=== PATIENT | male | born 1995 | race Caucasian/White ===

== ENCOUNTER 2017-02-16 17:53 | Emergency (ER) | payer BC ==
[~2017-02-16] VITALS: Ht 190.5 cm; Wt 83.2 kg
[2017-02-16] MEDS ORDERED: SODIUM CHLORIDE 0.9% 1000ML 1,000 ML IV STA (17:56)
[2017-02-16 18:00] VITALS: TEMP 36.4; Ht 190.5 cm; Wt 83.2 kg
[2017-02-16] MEDS ORDERED: DIPHTHERIA/TETANUS/PERTUSSIS 0.5 ML SYR/VIAL IM. ONE (18:00)
--- NOTE | 2017-02-16 18:01 | EMERGENCY ROOM VISIT NOTE ---
History Report prepared by Viviana: Cleve Xavier Under the Supervision of: Dr. Tod Gardiner M.D. First contact with patient: 17:55 Stated Complaint: ETOH History of Present Illness The patient is a 24 year old male who presents to the Emergency Room via EMS with complaints of alcohol intoxication that occurred DITCH DIGGER. This HPI is limited secondary to intoxication. Per EMS, the patient was seen in someone's back yard. At this time, the patient fell down forward onto his face in the man's garden. He is oriented to person only. Source of History: EMS History Limited By: intoxication Onset: DITCH DIGGER Position: other (global) Symptom Intensity: moderate Quality: other (ETOH intoxication) Timing: constant Review of Systems See HPI for pertinent positives & negatives. A total of 10 systems reviewed and were otherwise negative. Past Medical & Surgical Unable to obtain secondary to alcohol intoxication Family History Unable to obtain secondary to alcohol intoxication. Social History Smoking Status: Unknown if Ever Smoked Smokeless Tobacco Use: Unknown Alcohol Use: occasionally Marital Status: single Occupation Status: student Current/Historical Medications Scheduled Amoxicillin & Pot Clavulanate (Augmentin 875-125 mg), 875 MG PO BID Physical Exam Vital Signs Date Time Temp Pulse Resp B/P Pulse Ox O2 Delivery O2 Flow Rate FiO2 02/17/17 00:06 100 18 99/46 98 Room Air 02/16/17 22:17 103 02/16/17 22:05 133 15 98 02/16/17 22:00 98/49 02/16/17 21:40 107 16 94 02/16/17 21:35 105 16 93 02/16/17 21:30 105/50 02/16/17 21:05 105 16 93 02/16/17 21:00 116/67 02/16/17 20:38 105 17 93 02/16/17 20:08 112 17 93 02/16/17 19:38 121 20 02/16/17 19:33 133 18 148/136 02/16/17 19:03 128 20 02/16/17 18:58 128 15 02/16/17 18:55 117/62 02/16/17 18:28 142 18 98 02/16/17 18:23 142 21 98 02/16/17 18:10 133 02/16/17 18:00 36.4 133 15 128/62 99 Room Air 02/16/17 17:59 128/62 Physical Exam GENERAL: Patient is heavily intoxicated. Smells of alcohol. Well appearing and in no acute distress. Covered in blood and mud. HEAD: NC, multiple abrasions to the face and chin EYES: Injected conjunctiva. Normal EOM. Pupils equal/reactive. ENT: Mucous membranes moist, no nasal congestion. Deep laceration over the bridge of the nose. NECK: No step-offs, no adenopathy, no meningismus, trachea is midline. LUNGS: No dyspnea. Clear to auscultation and equal bilaterally. No wheeze, no rhonchi. HEART: Regular rate and rhythm. No murmurs, rubs, gallops appreciated. ABDOMEN: Soft, nontender, bowel sounds positive, no masses appreciated, no peritonitis. BACK: No midline tenderness, no CVA tenderness EXTREMITIES: Normal motion all extremities, no cyanosis, no edema. NEUROLOGIC: Intoxicated. Oriented to person only. No acute motor or sensory deficits, no focal weakness, cranial nerves grossly intact. GCS of 14. SKIN: No rash, no jaundice, no diaphoresis. Medical Decision & Procedures ER Provider Diagnostic Interpretation: Radiology results are stated below per my review and radiologist interpretation: CT FACIAL BONES-MXILLOFAC WITHOUT CT DOSE: CLINICAL HISTORY: Head and facial trauma. Alcohol overdose. COMPARISON STUDY: No previous studies for comparison. TECHNIQUE: Helical images were acquired in the transverse plane. The study was reviewed and analyzed on the independent 3-D workstation. The pterygoid plates appear intact. The zygomatic arches appear intact. The globes appear intact. There is no evidence of orbital emphysema. The orbital ramos and floor appear intact. The mandibular condyles appear intact. There is bilateral maxillary sinus mucosal thickening. There is ethmoid sinus mucosal thickening. There is minimal sphenoid sinus mucosal thickening. There is a nondisplaced nasal bone fracture. IMPRESSION: Nondisplaced nasal bone fracture. No additional facial fractures identified. Electronically signed by: Aryan Nichols M.D. 02/16/2017 7:00 PM Dictated Date/Time: 02/16/2017 6:[address] HEAD WITHOUT CONTRAST (CT) CLINICAL HISTORY: Head trauma. Alcohol intoxication. COMPARISON STUDY: No previous studies for comparison. TECHNIQUE: Axial CT of the brain is performed from the vertex to the skull base. IV contrast was not administered for this examination. CT DOSE: 1288.55 mGy.cm FINDINGS: No intra or extra-axial mass lesions are visualized. There is no CT evidence of acute cortical infarction. There is no evidence of midline shift. There is no acute hemorrhage. No calvarial fractures are visualized. Tiny right basal ganglia hypodensities likely represent dilated perivascular spaces. There is no evidence of pathologic ventricular dilatation. There is bilateral maxilla sinus mucosal thickening. There is trace fluid in the right maxilla sinus. There is a right maxilla sinus retention cyst. There is a nasal bone fracture. IMPRESSION: 1. Nasal bone fracture 2. No acute intracranial findings. No evidence of acute intracranial injury. Electronically signed by: Aryan Nichols M.D. 02/16/2017 6:57 PM Dictated Date/Time: 02/16/2017 6:56 PM CHEST ONE VIEW PORTABLE CLINICAL HISTORY: Alcohol overdose COMPARISON STUDY: No previous studies for comparison. FINDINGS: The cardiac and mediastinal contours are normal. There is no evidence of focal pulmonary consolidation. There is no evidence of failure. No pleural effusions are visualized.[ IMPRESSION: No active disease in the chest. Electronically signed by: Aryan Nichols M.D. 02/16/2017 7:32 PM Dictated Date/Time: 02/16/2017 7:[address] OF THE CERVICAL SPINE CLINICAL HISTORY: Neck pain status post trauma. Alcohol intoxication. COMPARISON STUDY: No previous studies for comparison. CT DOSE: TECHNIQUE: CT scan of the cervical spine was performed from the skull base to the thoracic inlet. Images are reviewed in the axial, sagittal, and coronal planes. IV contrast was not administered for this examination. FINDINGS: The visualized portions of the lung apices reveal no evidence of pneumothorax. The prevertebral soft tissues are normal. No fractures or subluxations are visualized. IMPRESSION: No evidence of acute fracture or traumatic subluxation. Electronically signed by: Aryan Nichols M.D. 02/16/2017 7:03 PM Dictated Date/Time: 02/16/2017 7:02 PM Laboratory Results 02/16/17 18:10 02/16/17 18:10 Test 02/16/17 18:10 02/16/17 18:19 Red Blood Count 5.28 M/uL (4.7-6.1) Mean Corpuscular Volume 81.6 fL (80-100) Mean Corpuscular Hemoglobin 29.7 pg (25-34) Mean Corpuscular Hemoglobin Concent 36.4 g/dl (32-36) RDW Standard Deviation 36.4 fL (36.4-46.3) RDW Coefficient of Variation 12.2 % (11.5-14.5) Mean Platelet Volume 9.9 fL (7.4-10.4) Anion Gap 13.0 mmol/L (3-11) Est Creatinine Clear Calc Drug Dose 122.9 ml/min Estimated GFR () 109.1 Estimated GFR (Non- 94.1 BUN/Creatinine Ratio 11.6 (10-20) Calcium Level 8.4 mg/dl (8.5-10.1) Ethyl Alcohol mg/dL 326.0 mg/dl (0-3) Laboratory results as reviewed by me. Medications Administered Medications (Trade) Dose Ordered Sig/Samson Route Start Time Stop Time Status Last Admin Dose Admin Diphtheria/ Pertussis/Tetanus Vacc 0.5 ml 0.5 ml ONCE ONCE IM. 02/16/17 18:00 02/16/17 18:01 DC 02/16/17 18:18 0.5 ML Sodium Chloride (Nss 1000ml) 1,000 ml @ 999 mls/hr Q1H1M STAT IV 02/16/17 17:56 02/16/17 18:56 DC 02/16/17 18:17 999 MLS/HR Lorazepam 2 mg 2 mg NOW STAT IV 02/16/17 18:57 02/16/17 18:58 DC 02/16/17 19:03 2 MG Ampicillin Sodium/ Sulbactam Sodium/ Sodium Chloride (Unasyn Inj/Nss 100ml) 108 ml @ 200 mls/hr ONE ONCE IV 02/16/17 19:15 02/16/17 19:52 DC 02/16/17 19:51 200 MLS/HR Haloperidol Lactate (Haldol Inj) 10 mg NOW STAT IM 02/16/17 19:16 02/16/17 19:17 DC 02/16/17 19:41 10 MG Lorazepam (Ativan Inj) 2 mg NOW STAT IV 02/16/17 19:16 02/16/17 19:17 DC 02/16/17 19:22 2 MG ED Course 1755: The patient was evaluated in room A12A. A complete history and physical exam was performed. 1756: Ordered Sodium Chloride 1000 ml @ 999 mls/hr IV 1800: Ordered Adacel Inj 0.5 ml IM 180: He denies any pain at this time. He informed me that he thinks that his teeth were broken prior to the fall in the garden. 182: He will now go for a CT scan. 1856: Ordered Ativan Inj 2 mg IV 1899: Ordered Lidocaine HCl 20 ml INFIL 1914: Ordered Ampicillin Sodium/Sulbactam Sodium 3000 mg/Sodium Chloride 108 ml @ 200 mls/hr IV 1915: I was informed that the patient has become belligerent and is swinging punches toward people as well. We will need to chemically sedate him for his own safety. Ordered Ativan Inj 2 mg IV, Haldol Inj 10 mg IV. 1928: The patient has received his medications, however, he is still swearing and being aggressive with the staff. We have also delayed the closing of his wounds secondary to the patient's aggressive mental status. 1951: He is now asleep. 2011: The patient remains asleep at this time, however, when the PA was attempting to suture his face, he is making nonviolent arm movements in his sleep. I will request soft restraints for these movements. 2343: The patient is still sleeping soundly. He is in no distress. 0000: He is now awake, alert, oriented, and answering questions appropriately. He asked to be watched for a little longer before his friends can come and pick him up to go home. 0030: Reevaluated the patient. Discussed results and discharge instructions: He verbalized understanding and agreement. The patient is ready for discharge. Medical Decision Differential: Alcohol Intoxication, Drug Intoxication, Electrolyte Abnormality, Trauma, Intracranial Event, Toxicological, Excited Delirium, Serotonin Syndrome , amongst other pathologies entertained. 24 yr old intoxicated male brought in by EMS after being witnessed falling in to a garden in local back yard. Patient with extensive abrasions over face with macerated laceration over bridge of nose. Initially [id number] though a bit worked up. CT head/face/neck with nasal fractures. Technically open fracture given laceration overtop though no bone appreaciated on eval of wound. Multiple broken teeth though he is adamant that they were broken prior to this episode. Gradually worsening aggression I was unable to verbally deescalate nor re-direct the patient. The patient's combative behavior was risking a catastrophe. To protect the staff and the patient from harm it was necessary to chemically restrain the patient. After patient fell asleep sutures to laceration were placed. Protecting airway and breathing comfortably throughout ED stay. EtOH positive. Monitored and discharged when awake, alert , oriented and denies any complaints. I had a long chat with mother after patient called her and asked I talk to her and reviewed findings, why he was sedated, and follow up plans. She confirms he broke teeth as child but they had been fixed thus I discussed his need to follow up with dentistry and for suture removal. Impression Primary Impression: Alcohol abuse Additional Impressions: Alcohol use with intoxication Nasal bone fracture Nasal laceration Head injury, closed Tooth fractures Combative behavior Critical Care I have personally spent greater than 30 minutes of critical care time in the direct management of this patient. This was a life/limb threatening event. This includes time spent evaluating patient, direct bedside care, chart review, placing orders, interpretation of diagnostic studies, discussion with consultants, patient, and family members, as well as other required patient management activities. These 30 minutes is in excess of all separately billable procedures. Scribe Attestation The scribe's documentation has been prepared under my direction and personally reviewed by me in its entirety. I confirm that the note above accurately reflects all work, treatment, procedures, and medical decision making performed by me. Departure Information Dispostion Home / Self-Care Prescriptions Amoxicillin & Pot Clavulanate (Augmentin 875-125 mg) 1 Tab Tab 875 MG PO BID for 10 Days, #20 TAB Prov: Tod Gardiner M.D. 02/16/17 Forms HOME CARE DOCUMENTATION FORM, IMPORTANT VISIT INFORMATION Patient Instructions Alcohol Intoxication - [facility], ED Fx Nasal Laceration Sutr Or Tape, [facility]: [employer] Students and Alcohol Related Visits, My [facility] Additional Instructions You were severely combative with staff and had to be physically and chemically restrained to protect you and the staff of the Emergency Department. The medications given to you can sometimes cause side effects of muscle stiffness and twitching the next day. If you have concerns please return to Emergency Department for further evaluation. You had CT imaging of your head, face and neck done along with a Chest Xray. Your CT scans revealed a fracture of your nose, but otherwise no other acute injuries were found. These had to be done because you were heavily intoxicated with clear evidence of trauma. You were given a Tetanus vaccination because you were too intoxicated to give us a time when your last shot was. Your blood alcohol level was significantly elevated consistent with your intoxicated state. You will need to be on antibiotic for your nasal fracture to avoid infection. You will need your sutures removed in 5 - 7 days. There were 6 sutures placed. The laceration was difficult to close due to it's macerated state. Follow up with or [facility] for suture removal. Problem Qualifiers Additional Impressions: Nasal bone fracture Encounter type: initial encounter Fracture type: open Qualified Codes: S02.2XXB - Fracture of nasal bones, initial encounter for open fracture Nasal laceration Encounter type: initial encounter Qualified Codes: S01.21XA - Laceration without foreign body of nose, initial encounter Head injury, closed Encounter type: initial encounter Qualified Codes: S09.90XA - Unspecified injury of head, initial encounter Tooth fractures Encounter type: initial encounter Fracture type: closed Qualified Codes: S02.5XXA - Fracture of tooth (traumatic), initial encounter for closed fracture
[2017-02-16 18:21] LABS: HEMATOCRIT 43.1 % (42-52); MEAN CELL VOLUME 81.6 fL (80-100); MEAN CORPUSCULAR HEMOGLOBIN 29.7 pg (25-34); MEAN CORPUSCULAR HGB CONC 36.4 g/dl (32-36); MEAN PLATELET VOLUME 9.9 fL (7.4-10.4); PLATELET COUNT 246 K/uL (130-400); RED BLOOD COUNT 5.28 M/uL (4.7-6.1); WHITE BLOOD COUNT 10.38 K/uL (4.8-10.8)
[2017-02-16 18:36] LABS: BUN/CREATININE RATIO 11.6 (10-20); CALCIUM 8.4 mg/dl (8.5-10.1); CREATININE 1.1 mg/dl (0.60-1.40); POTASSIUM 3.1 mmol/L (3.5-5.1)
[2017-02-16] MEDS ORDERED: LORAZEPAM 2 MG/ML 1 ML VIAL IV STA ×2 (18:57→19:16)
--- NOTE | 2017-02-16 18:59 | DIAGNOSTIC IMAGING REPORT ---
CT HEAD WITHOUT CONTRAST (CT) CLINICAL HISTORY: Head trauma. Alcohol intoxication. COMPARISON STUDY: No previous studies for comparison. TECHNIQUE: Axial CT of the brain is performed from the vertex to the skull base. IV contrast was not administered for this examination. CT DOSE: 1288.55 mGy.cm FINDINGS: No intra or extra-axial mass lesions are visualized. There is no CT evidence of acute cortical infarction. There is no evidence of midline shift. There is no acute hemorrhage. No calvarial fractures are visualized. Tiny right basal ganglia hypodensities likely represent dilated perivascular spaces. There is no evidence of pathologic ventricular dilatation. There is bilateral maxilla sinus mucosal thickening. There is trace fluid in the right maxilla sinus. There is a right maxilla sinus retention cyst. There is a nasal bone fracture. IMPRESSION: 1. Nasal bone fracture 2. No acute intracranial findings. No evidence of acute intracranial injury. Electronically signed by: Aryan Nichols M.D. 02/16/2017 6:57 PM Dictated Date/Time: 02/16/2017 6:56 PM
[2017-02-16] MEDS ORDERED: XYLOCAINE 1%/SOD BICARB 20 ML VIAL INFIL ONE (19:00)
--- NOTE | 2017-02-16 19:03 | DIAGNOSTIC IMAGING REPORT ---
CT FACIAL BONES-MXILLOFAC WITHOUT CT DOSE: CLINICAL HISTORY: Head and facial trauma. Alcohol overdose. COMPARISON STUDY: No previous studies for comparison. TECHNIQUE: Helical images were acquired in the transverse plane. The study was reviewed and analyzed on the independent 3-D workstation. The pterygoid plates appear intact. The zygomatic arches appear intact. The globes appear intact. There is no evidence of orbital emphysema. The orbital ramos and floor appear intact. The mandibular condyles appear intact. There is bilateral maxillary sinus mucosal thickening. There is ethmoid sinus mucosal thickening. There is minimal sphenoid sinus mucosal thickening. There is a nondisplaced nasal bone fracture. IMPRESSION: Nondisplaced nasal bone fracture. No additional facial fractures identified. Electronically signed by: Aryan Nichols M.D. 02/16/2017 7:00 PM Dictated Date/Time: 02/16/2017 6:58 PM
--- NOTE | 2017-02-16 19:05 | DIAGNOSTIC IMAGING REPORT ---
CT OF THE CERVICAL SPINE CLINICAL HISTORY: Neck pain status post trauma. Alcohol intoxication. COMPARISON STUDY: No previous studies for comparison. CT DOSE: TECHNIQUE: CT scan of the cervical spine was performed from the skull base to the thoracic inlet. Images are reviewed in the axial, sagittal, and coronal planes. IV contrast was not administered for this examination. FINDINGS: The visualized portions of the lung apices reveal no evidence of pneumothorax. The prevertebral soft tissues are normal. No fractures or subluxations are visualized. IMPRESSION: No evidence of acute fracture or traumatic subluxation. Electronically signed by: Aryan Nichols M.D. 02/16/2017 7:03 PM Dictated Date/Time: 02/16/2017 7:02 PM
[2017-02-16] MEDS ORDERED: AMPICILLIN/SULBACTAM SOD INJ 3,000 MG in SODIUM CHLORIDE 0.9% 100ML 100 ML IV ONE (19:15)
[2017-02-16] MEDS ORDERED: HALOPERIDOL LACTATE 5 MG/ML 1 ML VIAL IM STA (19:16)
--- NOTE | 2017-02-16 19:34 | DIAGNOSTIC IMAGING REPORT ---
CHEST ONE VIEW PORTABLE CLINICAL HISTORY: Alcohol overdose COMPARISON STUDY: No previous studies for comparison. FINDINGS: The cardiac and mediastinal contours are normal. There is no evidence of focal pulmonary consolidation. There is no evidence of failure. No pleural effusions are visualized.[ IMPRESSION: No active disease in the chest. Electronically signed by: Aryan Nichols M.D. 02/16/2017 7:32 PM Dictated Date/Time: 02/16/2017 7:31 PM
--- NOTE | 2017-02-16 20:36 | EMERGENCY ROOM VISIT NOTE ---
ED Visit Note I was requested by Dr. Gardiner for repair of a nasal laceration on this patient. Wound Repair: Complexity: Basic. Verbal consent was obtained after the risks and benefits were explained, including but not limited to bleeding, scarring, infection, pain, and bone/joint /nerve damage. The patient was very noncompliant and had to be restrained for the procedure as well as multiple staff members holding him down. The skin was prepped with betadine and tired face was cleansed. There are 2 macerated 1 cm lacerations on the bridge of the nose. The wound was anesthetized with 3.0 ml of 1% buffered lidocaine. With direct pressure the bleeding subsided. Copious irrigation was performed using sterile saline. The wound was explored for foreign bodies and none found. Debridement was not performed. The wound edges were approximated using 6-0 Ethilon with 6 simple interrupted sutures. Hemostasis and excellent approximation was achieved. Antibacterial ointment and a sterile dressing applied.
[2017-02-16] MEDS ORDERED: AMOX875T PO (23:58)
[2017-02-17 05:51] VITALS: BP 121/59; PULSE 85; O2SAT 96
== END 2017-02-17 05:53 | disposition home or self-care (01) ==
LOC: EDBD 17:53 → C.EDA 17:56 → EDBD 17:56 → C.EDA 02-17 05:53
DX: F10.188 Alcohol abuse with other alcohol-induced disorder (principal); S02.5XXA Fracture of tooth (traumatic), initial encounter for closed fracture; S02.2XXA Fracture of nasal bones, initial encounter for closed fracture; S01.21XA Laceration without foreign body of nose, initial encounter; S09.90XA Unspecified injury of head, initial encounter; S00.81XA Abrasion of other part of head, initial encounter; F91.9 Conduct disorder, unspecified; W18.30XA Fall on same level, unspecified, initial encounter; Y92.89 Other specified places as the place of occurrence of the external cause